=== PATIENT | male | born 1975 | race Caucasian/White ===

== ENCOUNTER 2018-12-06 11:02 | Inpatient (IN) | payer SELFPAY ==
[2018-12-06] MEDS ORDERED: MAGNE/ALUM HYDROXD 30 ML UCUP ONE (12:01)
--- NOTE | 2018-12-06 12:01 | RAD REPORT ---
EXAM DESCRIPTION: RAD - Chest Single View - 12/06/2018 11:49 am CLINICAL HISTORY: PAIN Chest pain. COMPARISON: No comparisons FINDINGS: Portable technique limits examination quality. The lungs are grossly clear. The heart is mildly enlarged in size. No displaced fractures.
[2018-12-06] MEDS ORDERED: FAMOTIDINE 20 MG/2 ML VIAL IV ONE (12:02)
[2018-12-06] MEDS ORDERED: NA CHLORIDE 0.9% 1,000 ML ONE (12:02)
[2018-12-06] MEDS ORDERED: LIDOCAINE VISCOUS 2% SOLN 15 ML UDC ONE (12:02)
[2018-12-06] MEDS ORDERED: ONDANSETRON 4 MG/2 ML VIAL ONE ×3 (12:02→15:07)
[2018-12-06] MEDS ORDERED: MORPHINE 4 MG/ML SYR ONE ×2 (12:02→13:53)
[2018-12-06 12:21] LABS: Basophils % 0.4 % (0-1.3); Eosinophils % 1.3 % (0-4.4); Hematocrit 46.2 % (39.6-49.0); Lymphocytes % 15.3 % (15.3-44.8); MPV 8.9 fL (7.6-11.3); Monocytes % 5.1 % (3.3-12.3); RBC Red Blood Cell Count 5.86 M/uL (4.33-5.43)
[2018-12-06 12:31] LABS: Protime INR 0.98
[2018-12-06 12:44] LABS: ALT/SGPT 45 U/L (12-78); AST/SGOT 37 U/L (15-37); Albumin 4.1 g/dL (3.4-5.0); Alkaline Phosphatase 88 U/L (45-117); BUN Blood Urea Nitrogen 15 mg/dL (7-18); Bicarbonate 26 mmol/L (21-32); Bilirubin Direct 0.2 mg/dL (0-0.2); Bilirubin Total 0.9 mg/dL (0.2-1.0); Glucose Level 105 mg/dL (74-106); Lipase 191 U/L (73-393); Magnesium 2.1 mg/dL (1.8-2.4); NT PRO-BNP 81 pg/mL (<125); Potassium 3.6 mmol/L (3.5-5.1); Sodium Level 139 mmol/L (136-145); Troponin (Emerg Dept Use Only) < 0.02 ng/mL (0.0-0.045)
--- NOTE | 2018-12-06 13:26 | RAD REPORT ---
EXAM DESCRIPTION: CT - Abdomen Pelvis W Contrast - 12/06/2018 1:04 pm CLINICAL HISTORY: Abdominal pain COMPARISON: None. TECHNIQUE: Biphasic, helical CT imaging of the abdomen and pelvis was performed following 100 ml non -ionic IV contrast. No oral contrast administered. All CT scans are performed using dose optimization technique as appropriate and may include automated exposure control or mA/KV adjustment according to patient size. FINDINGS: No suspicious findings in the lung bases. The liver, spleen, and pancreas show no suspicious findings. Gallbladder is grossly abnormal. Gallbla dder is dilated with stones and sludge present in the lumen. Thickened, edematous gallbladder wall is seen. Mild intrahepatic biliary tree prominence noted. Common bile duct is not abnormally dilated. D uct stones can be occult. Motion degradation in the upper abdomen limits detail. Symmetric renal function is seen with no hydronephrosis or suspicious renal mass. No pyelonephritis o r acute parenchymal process. No bladder abnormalities. No adrenal abnormalities. Fluid is retained within the stomach. No gastric wall thickening or mass the. Small bowel loops are n ot dilated. Distal small bowel loops are fluid-filled. Motion limits detail in the upper abdominal anton wel loops. Areas of small bowel intussusception are suspected in the jejunum. There is no resulting o bstruction. This intussusception pattern is usually not clinically significant and is self reducing. Moderate stool volume in the colon. No acute colon process seen. The appendix is normal. No free air or pneumatosis. No hernia, mass or bulky lymphadenopathy. No suspicious bony findings. IMPRESSION: Grossly abnormal gallbladder with stones and sludge present. Wall is thickened and edema tous. Biliary tree is mildly prominent within the liver parenchyma. Extrahepatic biliary tree is not abnorm ally dilated. Duct stones can be occult. No bowel obstruction, free air or surgically emergent finding otherwise noted. Fluid filled distal sm all bowel loops could indicate a nonspecific enteritis.
--- NOTE | 2018-12-06 14:20 | ER ---
Nurse's Notes [facility] Name: Mt Colmenares Age: 43 yrs Sex: Male : 1975 Arrival Date: 12/06/2018 Time: 11:05 Bed 16 Private MD: Diagnosis: Acute cholecystitis Presentation: 12/06 11:15 Presenting complaint: "he woke up and he thought he had indigestion, and its just aj1 gotten progressively worse. It started about 5 hours ago" Patient reports chest pain. Transition of care: patient was not received from another setting of care. Onset of symptoms was December 06, 2018 at 06:00. Risk Assessment: Do you want to hurt yourself or someone else? Patient reports no desire to harm self or others. Initial Sepsis Screen: Does the patient meet any 2 criteria? No. Patient's initial sepsis screen is negative. Does the patient have a suspected source of infection? No. Patient's initial sepsis screen is negative. Care prior to arrival: None. 11:15 Method Of Arrival: Wheelchair aj1 11:15 Acuity: CLARY 3 aj1 Triage Assessment: 11:17 General: Appears uncomfortable, Behavior is anxious, restless. Pain: Complains of pain aj1 in chest Pain currently is 10 out of 10 on a pain scale. Neuro: Level of Consciousness is awake, alert, obeys commands, Oriented to person, place. Cardiovascular: Patient's skin is warm and dry. Respiratory: Airway is patent Respiratory effort is even, unlabored, Respiratory pattern is regular, symmetrical, hyperventilation. Historical: - Allergies: 11:17 No Known Allergies; aj1 - Home Meds: 11:17 None [Active]; aj1 - PMHx: 11:17 None; aj1 - Immunization history:: Flu vaccine is up to date. - Social history:: Smoking status: Patient/guardian denies using tobacco, Patient uses street drugs, Methamphetamine (Meth) Patient/guardian denies using alcohol, IV drugs, caffeine, The patient lives with family. - Ebola Screening: : Patient denies travel to an Ebola-affected area in the 21 days before illness onset. - Family history:: not pertinent. Screenin:20 Abuse screen: Denies threats or abuse. Nutritional screening: No deficits noted. rb1 Tuberculosis screening: No symptoms or risk factors identified. Fall Risk None identified. Assessment: 11:20 General: Appears distressed, uncomfortable, Behavior is cooperative, anxious, Denies rb1 fever. Pain: Complains of pain in epigastric area Pain currently is 10 out of 10 on a pain scale. Pain began suddenly. Neuro: Level of Consciousness is awake, alert, obeys commands, Oriented to person, place, time, situation. Cardiovascular: Capillary refill < 3 seconds is brisk in bilateral fingers. Respiratory: Airway is patent Respiratory effort is even, unlabored, Respiratory pattern is regular, symmetrical. GI: Reports nausea. : No signs and/or symptoms were reported regarding the genitourinary system. Derm: Skin is pink, warm \\T\\ dry. 12:20 Reassessment: Patient appears in no apparent distress at this time. Patient and/or rb1 family updated on plan of care and expected duration. Pain level reassessed. Patient is alert, oriented x 3, equal unlabored respirations, skin warm/dry/pink. 13:13 Reassessment: Patient appears in no apparent distress at this time. Patient and/or rb1 family updated on plan of care and expected duration. Pain level reassessed. Patient is alert, oriented x 3, equal unlabored respirations, skin warm/dry/pink. Pt. is requesting pain medications. Provider notified. 14:13 Reassessment: Patient appears in no apparent distress at this time. Patient and/or rb1 family updated on plan of care and expected duration. Pain level reassessed. Patient is alert, oriented x 3, equal unlabored respirations, skin warm/dry/pink. Patient states feeling better. Vital Signs: 11:17 BP 158 / 91; Pulse 92; Resp 24; Temp 98.2; Pulse Ox 100% on R/A; Weight 86.18 kg (R); aj1 Height 6 ft. 0 in. (182.88 cm) (R); Pain 10/10; 12:17 BP 154 / 94; Pulse 53; Resp 22; Temp 98.3(O); Pulse Ox 99% ; Pain 8/10; rb1 13:14 BP 133 / 93; Pulse 87; Resp 24; Temp 98.4(O); Pain 10/10; rb1 14:20 BP 135 / 86; Pulse 96; Resp 21; Temp 98.3(O); Pulse Ox 99% on R/A; mh5 14:36 BP 127 / 82; Pulse 65; Resp 17; Temp 98.2(O); Pulse Ox 99% on R/A; Pain 8/10; rb1 11:17 Body Mass Index 25.77 (86.18 kg, 182.88 cm) aj1 ED Course: 11:05 Patient arrived in ED. mr 11:17 Triage completed. aj1 11:17 Arm band placed on Patient placed in an exam room. aj1 11:18 Emily Willson MD is Attending Physician. ma2 11:20 Patient has correct armband on for positive identification. Bed in low position. Call rb1 light in reach. Side rails up X 1. gambling monitor on. Pulse ox on. NIBP on. 11:32 Kiara Mcdonald, RN is Primary Nurse. rb1 11:39 EKG done, by cable television technician. reviewed by Emily Willson MD. sm3 11:50 XRAY Chest (1 view) In Process Unspecified. EDMS 12:00 Inserted saline lock: 22 gauge in left forearm, using aseptic technique. Blood rb1 collected. 13:05 CT Abd/Pelvis - IV Contrast Only In Process Unspecified. EDMS 14:19 Gabo Schneider MD is Hospitalizing Provider. ma2 14:38 No provider procedures requiring assistance completed. Patient admitted, IV remains in rb1 place. Administered Medications: 11:40 Drug: GI Cocktail without - (Maalox Suspension 30 ml, Lidocaine Liquid 2 % 15 rb1 ml) Route: PO; 12:00 Follow up: Response: No adverse reaction rb1 12:00 Drug: NS 0.9% 1000 ml Route: IV; Rate: 1 bolus; Site: left forearm; rb1 13:04 Follow up: IV Status: Completed infusion rb1 12:00 Drug: Pepcid 20 mg Route: IVP; Site: left forearm; rb1 12:15 Follow up: Response: No adverse reaction rb1 12:00 Drug: morphine 4 mg Route: IVP; Site: left forearm; rb1 12:15 Follow up: Response: No adverse reaction; Pain is decreased rb1 12:00 Drug: Zofran 4 mg Route: IVP; Site: left forearm; rb1 12:15 Follow up: Response: No adverse reaction; Nausea is decreased rb1 13:40 Drug: morphine 4 mg Route: IVP; Site: left forearm; rb1 14:00 Follow up: Response: No adverse reaction; Pain is decreased rb1 13:40 Drug: Zofran 4 mg Route: IVP; Site: left forearm; rb1 14:00 Follow up: Response: No adverse reaction; Nausea is decreased rb1 14:38 Drug: Zosyn 3.375 grams Route: IVPB; Infused Over: 60 mins; Site: left forearm; rb1 Outcome: 14:19 Decision to Hospitalize by Provider. ma2 14:38 Patient left the ED. rb1 14:38 Admitted to OR accompanied by nurse, family with patient, via wheelchair, with chart, rb1 Report called to DANUTA Redding from OR 14:38 Condition: stable 14:38 Instructed on the need for admit. Signatures: Dispatcher [employer] EDMS Love Ladd RN RN aj1 Kortney Peterson Rebecca, RN RN rb1 Mayi Lara 5 Emily Willson MD MD ma2 Alana Connor 3 Corrections: (The following items were deleted from the chart) 17:03 14:52 Patient left the ED. rb1 rb1
--- NOTE | 2018-12-06 14:20 | EDPHYS ---
Physician Documentation [facility] Name: Mt Colmenares Age: 43 yrs Sex: Male : 1975 Arrival Date: 12/06/2018 Time: 11:05 Bed 16 Private MD: ED Physician Emily Willson HPI: 12/06 14:20 This 43 yrs old Male presents to ER via Wheelchair with complaints of Anxiety.ma2 14:17 The patient presents with abdominal pain in the epigastric area, in the right upper ma2 quadrant, abdominal distention in the epigastric area. Onset: The symptoms/episode began/occurred gradually, 1 day(s) ago. Associated signs and symptoms: Pertinent negatives: anorexia, blood in stools, diarrhea, fever. Severity of pain: At its worst the pain was severe in the emergency department the pain is unchanged. The patient has not experienced similar symptoms in the past. Historical: - Allergies: 11:17 No Known Allergies; aj1 - Home Meds: 11:17 None [Active]; aj1 - PMHx: 11:17 None; aj1 - Immunization history:: Flu vaccine is up to date. - Social history:: Smoking status: Patient/guardian denies using tobacco, Patient uses street drugs, Methamphetamine (Meth) Patient/guardian denies using alcohol, IV drugs, caffeine, The patient lives with family. - Ebola Screening: : Patient denies travel to an Ebola-affected area in the 21 days before illness onset. - Family history:: not pertinent. ROS: 14:17 Constitutional: Negative for fever, chills, and weight loss. ma2 14:17 Abdomen/GI: Positive for abdominal pain, Negative for nausea, vomiting, and diarrhea, vomiting, bowel incontinence. 14:17 All other systems are negative. Exam: 14:17 Constitutional: This is a well developed, well nourished patient who is awake, alert, ma2 and in no acute distress. 14:17 ENT: Nares patent. No nasal discharge, no septal abnormalities noted. Tympanic membranes are normal and external auditory canals are clear. Oropharynx with no redness, swelling, or masses, exudates, or evidence of obstruction, uvula midline. Mucous membranes moist. Chest/axilla: Normal chest wall appearance and motion. Nontender with no deformity. No lesions are appreciated. Cardiovascular: Regular rate and rhythm with a normal S1 and S2. No gallops, murmurs, or rubs. Normal PMI, no JVD. No pulse deficits. Respiratory: Lungs have equal breath sounds bilaterally, clear to auscultation and percussion. No rales, rhonchi or wheezes noted. No increased work of breathing, no retractions or nasal flaring. MS/ Extremity: Pulses equal, no cyanosis. Neurovascular intact. Full, normal range of motion. Neuro: Awake and alert, GCS 15, oriented to person, place, time, and situation. Cranial nerves II-XII grossly intact. Motor strength 5/5 in all extremities. Sensory grossly intact. Cerebellar exam normal. Normal gait. 14:17 Abdomen/GI: Inspection: abdomen appears normal, Palpation: moderate abdominal tenderness, in the epigastric area, right upper quadrant and abdomen diffusely, rebound tenderness, is not appreciated, voluntary guarding, is not appreciated, involuntary guarding, is not appreciated. Vital Signs: 11:17 BP 158 / 91; Pulse 92; Resp 24; Temp 98.2; Pulse Ox 100% on R/A; Weight 86.18 kg (R); aj1 Height 6 ft. 0 in. (182.88 cm) (R); Pain 10/10; 12:17 BP 154 / 94; Pulse 53; Resp 22; Temp 98.3(O); Pulse Ox 99% ; Pain 8/10; rb1 13:14 BP 133 / 93; Pulse 87; Resp 24; Temp 98.4(O); Pain 10/10; rb1 14:20 BP 135 / 86; Pulse 96; Resp 21; Temp 98.3(O); Pulse Ox 99% on R/A; mh5 14:36 BP 127 / 82; Pulse 65; Resp 17; Temp 98.2(O); Pulse Ox 99% on R/A; Pain 8/10; rb1 11:17 Body Mass Index 25.77 (86.18 kg, 182.88 cm) aj1 MDM: 11:18 Patient medically screened. ma2 14:17 Differential diagnosis: cholecystitis, Cholelithiasis, diverticulitis, gastritis, ma2 gastroesophageal reflux disease, Hepatitis. Data reviewed: vital signs, nurses notes. Counseling: I had a detailed discussion with the patient and/or guardian regarding: the historical points, exam findings, and any diagnostic results supporting the discharge/admit diagnosis, the presence of at least one elevated blood pressure reading (>120/80) during this emergency department visit, the need for further work-up and treatment in the hospital. ED course: discussed with dr. Kruger and accepted by Giovany. 14:17 ED course: accepted by dr. kruger and guillaume. 12/06 11:32 Order name: Basic Metabolic Panel; Complete Time: 13:53 12/06 11:32 Order name: CBC with Diff; Complete Time: 13:53 12/06 11:32 Order name: LFT's; Complete Time: 13:53 12/06 11:32 Order name: Magnesium; Complete Time: 13:53 12/06 11:32 Order name: NT PRO-BNP; Complete Time: 13:53 12/06 11:32 Order name: PT-INR; Complete Time: 13:53 12/06 11:32 Order name: Troponin (emerg Dept Use Only); Complete Time: 13:53 12/06 11:32 Order name: XRAY Chest (1 view); Complete Time: 13:53 12/06 11:32 Order name: CT Abd/Pelvis - IV Contrast Only; Complete Time: 13:53 12/06 11:32 Order name: Lipase; Complete Time: 13:53 12/06 11:32 Order name: EKG; Complete Time: 11:34 12/06 11:32 Order name: Cardiac monitoring; Complete Time: 12:40 12/06 11:32 Order name: EKG - Nurse/Tech; Complete Time: 11:36 12/06 11:32 Order name: IV Saline Lock; Complete Time: 12:39 12/06 11:32 Order name: Labs collected and sent; Complete Time: 12:40 12/06 11:32 Order name: O2 Per Protocol; Complete Time: 11:36 12/06 11:32 Order name: O2 Sat Monitoring; Complete Time: 11:36 12/06 14:10 Order name: NPO; Complete Time: 14:34 ma2 Administered Medications: 11:40 Drug: GI Cocktail without - (Maalox Suspension 30 ml, Lidocaine Liquid 2 % 15 rb1 ml) Route: PO; 12:00 Follow up: Response: No adverse reaction rb1 12:00 Drug: NS 0.9% 1000 ml Route: IV; Rate: 1 bolus; Site: left forearm; rb1 13:04 Follow up: IV Status: Completed infusion rb1 12:00 Drug: Pepcid 20 mg Route: IVP; Site: left forearm; rb1 12:15 Follow up: Response: No adverse reaction rb1 12:00 Drug: morphine 4 mg Route: IVP; Site: left forearm; rb1 12:15 Follow up: Response: No adverse reaction; Pain is decreased rb1 12:00 Drug: Zofran 4 mg Route: IVP; Site: left forearm; rb1 12:15 Follow up: Response: No adverse reaction; Nausea is decreased rb1 13:40 Drug: morphine 4 mg Route: IVP; Site: left forearm; rb1 14:00 Follow up: Response: No adverse reaction; Pain is decreased rb1 13:40 Drug: Zofran 4 mg Route: IVP; Site: left forearm; rb1 14:00 Follow up: Response: No adverse reaction; Nausea is decreased rb1 14:38 Drug: Zosyn 3.375 grams Route: IVPB; Infused Over: 60 mins; Site: left forearm; rb1 Disposition: 12/06/18 14:19 Hospitalization ordered by Gabo Schneider for Inpatient Admission. Preliminary diagnosis is Acute cholecystitis. - Bed requested for Telemetry/MedSurg (Inpatient). - Status is Inpatient Admission. rb1 - Condition is Stable. - Problem is new. - Symptoms are unchanged. UTI on Admission? No Signatures: Dispatcher [employer] EDMN Love Ladd RN RN aj1 Kiara Mcdonald RN RN rb1 Emily Willson MD MD ma2 Corrections: (The following items were deleted from the chart) 14:52 14:19 Hospitalization Ordered by Gabo Schneider MD for Inpatient Admission. Preliminary rb1 diagnosis is Acute cholecystitis. Bed requested for Telemetry/MedSurg (Inpatient). Status is Inpatient Admission. Condition is Stable. Problem is new. Symptoms are unchanged. UTI on Admission? No. ma2
--- NOTE | 2018-12-06 14:45 | P.HP ---
Date of Service: 12/06/18 PC: This 43-year-old male presents emergency room with severe right upper quadrant abdominal pain for diagnosis and treatment. HPC: Patient had sudden onset of upper abdominal pain earlier this morning. Pain was unrelenting. Came in waves. Never fully went away. Seems to be going straight through to his back. Never had a pain like that before. PMH: Negative PSHx: Denies any prior surgeries SOC: No known allergies SYS REVIEW: No cough, wheeze, shortness of breath. No chest pain or palpitations. States he has been having some urinary symptoms, namely frequency an inability to start O/E awake alert vital signs are stable, comfortable at the moment. HEENT: Not jaundiced Chest: Chest movement equal bilaterally ABD: Positive Rock's sign LOCO: Intact DATA: CT scan demonstrates acute cholecystitis, elevated white count IMPRESSION: Acute on chronic cholecystitis with cholelithiasis, biliary colic PLAN: I will take him to the operating room for laparoscopic possible open cholecystectomy. The risks of this procedure have been discussed. The possibility of bleeding, infection, injury to bile ducts blood vessels and intestines has been described. The possible need for an open and/or further surgeries and procedures was discussed. He understands and wants us to proceed.
[2018-12-06] MEDS ORDERED: PIPER/TAZO/NS 3.375gm 3.375 GM/100 ML BAG ONE (14:46)
--- NOTE | 2018-12-06 14:48 | EKG ---
Test Date: 2018-12-06 Test Time: 11:30:32 Scrap Preparer: CAROL MEASUREMENT RESULTS: Intervals: Rate: 80 AL: 158 QRSD: 102 QT: 404 QTc: 465 [place]: P: 67 AL: 158 QRS: 97 T: 77 INTERPRETIVE STATEMENTS: Normal sinus rhythm with sinus arrhythmia Rightward axis T wave abnormality, consider anterior ischemia Prolonged QT Abnormal ECG No previous ECG available for comparison Electronically Signed On 12-06-18 14:47:10 CDT by Florentino Ureña
[2018-12-06] MEDS ORDERED: ACETAMINOPHEN 650MG/RECT SUPP PR PRN (14:51)
[2018-12-06] MEDS ORDERED: ONDANSETRON 4 MG/2 ML VIAL IV PRN (14:51)
[2018-12-06] MEDS ORDERED: MORPHINE 2 MG/ML SYR IV PRN (14:51)
[2018-12-06] MEDS ORDERED: Ringers Lactate 1,000 ML IV ONE (14:59)
[2018-12-06] MEDS ORDERED: PROPOFOL 200 MG/20 ML VIAL IV ONE (15:06)
[2018-12-06] MEDS ORDERED: MIDAZOLAM HCL 2 MG/2 ML INJ ONE (15:06)
[2018-12-06] MEDS ORDERED: GLYCOPYRROLATE 0.2 MG/ML SYR ONE (15:06)
[2018-12-06] MEDS ORDERED: FENTANYL CITR 100 MCG/2 ML ONE ×2 (15:06→15:48)
[2018-12-06] MEDS ORDERED: NEOSTIGMINE 1 MG/ML -10 ML VIAL ONE (15:07)
[2018-12-06] MEDS ORDERED: LIDOCAINE 1% MPF 5 ML VIAL ONE (15:07)
[2018-12-06] MEDS ORDERED: KETOROLAC 30 MG/ML INJ ONE (15:07)
[2018-12-06] MEDS ORDERED: ROCURONIUM 50 MG/5 ML VIAL IV ONE (15:08)
--- NOTE | 2018-12-06 16:21 | P.OP ---
Preoperative diagnosis: Acute cholecystitis with cholelithiasis Postoperative diagnosis: The same Primary procedure: Laparoscopic cholecystectomy Secondary procedure: And cholangiogram Anesthesia: General Estimated blood loss: Less than 20 cc Specimen: 1 large edematous and distended gall bladder with contents Operative Technique: The patient was brought to the operating room placed supine on the table. After the induction of adequate general endotracheal anesthesia, the area of the abdomen is prepped with a DuraPrep solution, and draped in the usual aseptic manner. A subumbilical incision was made. This brought down through the skin and subcutaneous tissue. The Visiport was used to enter the peritoneal cavity and created pneumoperitoneum to approximately 12 mm of mercury. Under direct vision a 5 mm trocar was placed in the upper midline, and 2 other 5 mm trocars on the right lateral side. The patient's head was then elevated and rolled towards the metal cnc operator's side. We could see a markedly distended gallbladder. There was obviously edema all around the tissue. Mild adhesions were noted. It was necessary to aspirate the contents to decompress it. A grasper was now all placed on the fundus of the gallbladder. Another 1 was placed down by Kb' s pouch. Applying lateral traction we were able to dissect and expose the cystic duct and artery. The artery was dealt with 1st. It was clipped and divided in the usual manner. A clip was then placed between the gallbladder and the cystic duct. An opening was made into the cystic duct. We attempted then to pass the cholangiocath into the cystic duct. Having successfully done so , the contrast was injected. We were able demonstrate good flow contrast into the duodenum. We could see the upper radicals clearly. The balloon was noted in the cystic duct. The catheter was now passed down to the duodenum, after deflating the retention balloon. The catheter was fully removed. Clips were now placed on the distal portion of the cystic duct. The cystic duct was then divided. The gallbladder was now dissected free from the liver bed, placed into an Endo-Catch, and brought out through the umbilical trocar site. Due to the size of is massively edematous gallbladder was necessary to incise the fascia at the emboli kiss. This was done in your direction. The after the gallbladder had been removed, the tissue was approximated using the Endo Close and a 4 absorbable sutures. The gallbladder fossa was inspected to ensure adequate hemostasis. It was irrigated with a saline solution and the irrigant aspirated from the peritoneal cavity. 0.25% Marcaine was aerosolized into the right upper quadrant and the gallbladder fossa. The pneumoperitoneum was then collapsed, the sutures tied, and payton applied to the skin. A further 0.25% Marcaine was injected around are incision sites. We also did block the him anterior abdominal wall with a TA PP block under direct vision with 0.25% Marcaine. At the end of the procedure the patient was in a stable condition when sent to the recovery room. Needle sponge instrument count were correct. 1 specimen was sent for histopathology. Complications: None Transferred to: Recovery Room Condition: Good
[2018-12-06] MEDS: D5.45NS W/KCL 20MEQ 1,000 ML IV SCH ×2 (17:19→22:15)
[2018-12-06] MEDS: METRONIDAZOLE 500mg IVPB 500 MG/100 ML BAG IV SCH (17:20)
--- NOTE | 2018-12-06 18:13 | RAD REPORT ---
EXAM DESCRIPTION: RAD - Fluoroscopy <1 Hour - 12/06/2018 5:48 pm CLINICAL HISTORY: Intraoperative cholangiogram LAP HILARIA COMPARISON: <Comparisons> FINDINGS: Intraoperative cholangiogram is submitted. Cystic duct injection was performed by kevin pat surgeon. No retained common bile duct stone seen. Biliary tree caliber is normal. Fluoroscopy time: 0.3 minutes.
--- NOTE | 2018-12-06 20:24 | P.HP ---
Certification for Inpatient Patient admitted to: Inpatient With expected LOS: >2 Midnights Practitioner: I am a practitioner with admitting privileges, knowledge of patient current condition, hospital course, and medical plan of care. Services: Services provided to patient in accordance with Admission requirements found in Title 42 Section 412.3 of the Code of Federal Regulations Patient History Date of Service: 12/06/18 Reason for admission: RUQ abdominal pain History of Present Illness: Patient is a 43 yo M w no significant PMHx who comes in with RUQ abdominal pain , decreased PO intake, nausea. Symptoms started suddenly and were intermittent. Pain slowly got worse without any alleviating factors. Pain was sharp, moderate , radiated to the back. Pt came to ER for worsening condition. No fevers Patient workup revealed elevated WBC and CT scan showed gallstones. Patient was taken for surgery straight from the OR by Dr. Woods. Allergies No Known Allergies Allergy (Verified 12/06/18 14:49) Home medications list reviewed: Yes Home Medications: NK [No Home Meds] 12/06/18 - Past Medical/Surgical History Has patient received pneumonia vaccine in the past: No Diabetic: No Past Medical History: Patient denies medical history Past Surgical History: Patient denies surgical history - Family History Family History: Reviewed- Non-Contributory - Social History Smoking Status: Never smoker Alcohol use: Yes CD- Drugs: No Caffeine use: No Place of Residence: Home Review of Systems 10-point ROS is otherwise unremarkable Gastrointestinal: As per HPI Physical Examination - Vital Signs Temperature: 98.2 F Blood Pressure: 116/73 Pulse: 84 Respirations: 19 Pulse Ox (%): 100 - Physical Exam General: Alert, Oriented x3, Acute distress HEENT: Atraumatic, PERRLA, Mucous membr. moist/pink, EOMI, Sclerae nonicteric Neck: Supple, 2+ carotid pulse no bruit, No LAD, Without JVD or thyroid abnormality Respiratory: Clear to auscultation bilaterally, Normal air movement Cardiovascular: No edema, Normal pulses, Regular rate/rhythm, Normal S1 S2 Gastrointestinal: Hypoactive, No rebound, Tenderness Musculoskeletal: No clubbing, No tenderness Integumentary: No rashes Neurological: Normal gait, Normal speech, Normal strength at 5/5 x4 extr, Normal tone, Normal affect - Studies Laboratory Data (last 24 hrs) 12/06/18 12:00: PT 11.6, INR 0.98 12/06/18 12:00: WBC 12.8 H, Hgb 15.3, Hct 46.2, Plt Count 248 12/06/18 12:00: Sodium 139, Potassium 3.6, BUN 15, Creatinine 1.11, Glucose 105 , Magnesium 2.1, Total Bilirubin 0.9, AST 37, ALT 45, Alkaline Phosphatase 88, Lipase 191 Imagings Data: ct abdomen shows gallstones and sludge Assessment and Plan - Problems (Diagnosis) (1) Acute cholecystitis Current Visit: Yes Status: Acute (2) Leukocytosis Current Visit: Yes Status: Acute - Plan IV abx cipro and flagyl NPO IVFs Pain control Surgical consultation SCDs - Advance Directives Does patient have a Living Will: No Does patient have a Durable POA for Healthcare: No - Code Status/Comfort Care Code Status Assessed: Yes
[2018-12-06] MEDS ORDERED: CIPROFLOXACIN 400mg IV 400 MG/200 ML BAG IV SCH (21:00)
[2018-12-07] MEDS: METRONIDAZOLE 500mg IVPB 500 MG/100 ML BAG IV SCH ×2 (01:14→08:41)
[2018-12-07] MEDS: D5.45NS W/KCL 20MEQ 1,000 ML IV SCH (03:26)
[2018-12-07 06:17] LABS: Urine Appearance CLOUDY; Urine Blood NEGATIVE (NEG); Urine Color ORANGE; Urine Glucose NEGATIVE (NEG); Urine Protein 2+ (NEG); Urine Specific Gravity >=1.030 (1.005-1.030)
[2018-12-07 06:23] LABS: Urine Bilirubin 1+ (NEG); Urine Microscopic Reflex ORDER UMIC
[2018-12-07 06:29] LABS: Urine Bacteria <20 /HPF (NONE SEEN); Urine RBC NONE SEEN /HPF (NONE SEEN)
[2018-12-07 06:30] LABS: Urine Amorphous Sediment 4+ /HPF (NONE SEEN); Urine Culture Reflex Order NOT NEEDED
[2018-12-07] MEDS: HYDROCODONE/APAP 7.5/325 MG TAB PO PRN ×2 (07:00→15:07)
[2018-12-07] MEDS: MORPHINE 4 MG/ML SYR IV PRN ×2 (08:40→12:46)
[2018-12-07] MEDS ORDERED: TAMSULOSIN 0.4 MG SR CAP PO ONE (09:34)
[2018-12-07 11:30] LABS: Absolute Lymphocytes (CBC) 1.3 K/uL (0.7-4.9); Basophils % 0.4 % (0-1.3); Eosinophils % 2.5 % (0-4.4); Hematocrit 41.4 % (39.6-49.0); Lymphocytes % 15.5 % (15.3-44.8); MPV 8.8 fL (7.6-11.3); Monocytes % 8.6 % (3.3-12.3); RBC Red Blood Cell Count 5.14 M/uL (4.33-5.43)
--- NOTE | 2018-12-07 23:14 | DS ---
Date of Discharge: 12/07/2018 Consultants: Dr. Woods with General Surgery. Procedures: On 12/06/2018, laparoscopic cholecystectomy and cholangiogram with no retained duct. Discharge Diagnoses: 1. Acute cholecystitis. 2. Cholelithiasis. 3. Leukocytosis. 4. Urinary retention, probable benign prostatic hyperplasia. Hospital Course: The patient is a 43-year-old male with no significant past medical history, who comes in with right upper quadrant abdominal pain. The patient was found to have acute cholecystitis, seen on CT. The patient was taken directly to surgery from the ER by Dr. Woods. The patient did well postoperatively. His pain improved. He was able to tolerate a diet. No nausea or vomiting. The patient did well postoperatively. He was able to ambulate without any difficulty. The patient was counseled regarding supplementation with fat-soluble vitamins and to avoid fried fatty foods in the future as he no longer has a gallbladder. The patient's white blood cell count normalized. He was afebrile. His electrolytes were within normal limits. Pain resolved. The patient did complain of some urinary retention that has been going on for several years. He does have some incomplete emptying of the bladder and requires straining to initiate his stream. The patient likely has benign prostatic hyperplasia, had his prostate checked 7 years ago. I encouraged the patient to establish care with a primary care physician to have a prostate exam done and possibly PSA levels checked to rule out any malignant issues. The patient will be given trial of Flomax to improve his symptoms. He understands that he needs to have further investigation to rule out more serious causes of urinary retention, such as prostate cancer. The patient was then cleared for discharge from surgical standpoint. He was sent home in stable condition to finish course of antibiotics. Followup: Follow up with surgeon Dr. Woods in 1 week for wound check. Establish care with PCP. Return to ER for worsening condition. Diet: A bland diet for the next few days. Avoid fried fatty foods. Supplement with fat-soluble vitamins. Activity: As tolerated. Physical Examination: General: Awake, alert, oriented x3, not in any acute distress. CV: S1, S2. No murmurs. Respiratory: Moving air well bilaterally. No wheezing. Gastrointestinal: Abdomen is soft, nontender, nondistended. Positive bowel sounds. Extremities: No clubbing, cyanosis, or edema. Neuro: Nonfocal. Skin: Incision site clean, dry, intact. Bandages in place. Total time spent discharging the patient was 37 minutes. /[email or web address] Voice ID: [id number] Report ID: [id number] [id number]
== END 2018-12-07 15:17 | disposition home or self-care (01) | DRG 419 ==
LOC: ER 11:02 → ERHOLD 14:31 → 4TH 15:33
PROVIDERS: ADMIT Surgery; ATTEND Family Medicine
PROC: 0FT44ZZ Resection of Gallbladder, Percutaneous Endoscopic Approach (ICD-10-PCS; principal; 2018-12-06 14:30)
DX: K80.00 Calculus of gallbladder with acute cholecystitis without obstruction (principal); D72.829 Elevated white blood cell count, unspecified; N40.1 Benign prostatic hyperplasia with lower urinary tract symptoms; R33.8 Other retention of urine
CPT/HCPCS: 36415; 71045; 74177; 76000; 80048; 80076; 81003; 81015; 83690; 83735; 83880; 84484; 85025; 85610; 88304; 93005; 94760; 96361; 96374; 96375; 99285; J2250; J2405; J2543; J2704; J2710; J3010; J7030; Q9967